=== PATIENT | female | born 1960 | race Caucasian/White ===

== ENCOUNTER 2021-04-17 15:39 | Outpatient (CLI) | payer MEDICARE, SELFPAY ==
--- NOTE | 2021-04-17 15:50 | MR_ITS ---
WS: [id number] MRI CERVICAL SPINE NONCONTRAST HISTORY: ANESTHESIA OF SKIN COMPARISON: None available. Technique: Multiplanar, multisequence noncontrast imaging of the cervical spine. Straightening of the normal cervical lordosis. Signal within the cord is normal. Disc desiccation and narrowing at all levels. No marrow edema or fr acture. Craniocervical junction, C1 and C2 relationship, odontoid process and soft tissues are normal. C2-C3: Normal. C3-C4: Diffuse disc bulging with a central disc protrusion contacting the ventral thecal sac. Ligamen della flavum hypertrophy and facet arthritis. Moderate central and mild bilateral foraminal stenosis. C4-C5: Diffuse annular disc bulging. There is a central moderate-sized disc protrusion which extends greatest to the LEFT of midline. Severe central and bilateral foraminal stenosis. C5-C6: Diffuse annular disc bulging and osteophytic ridging. Disc osteophyte complex greatest in the proximal RIGHT foramen. Severe central and bilateral foraminal stenosis. C6-C7: Diffuse annular disc bulging with a large central disc protrusion and foraminal osteophytes. S evere central and moderate bilateral foraminal stenosis. C7-T1: Small central disc protrusion without significant stenosis. Paraspinal soft tissue are normal. MR/MR cervical spin wo con* [id number] IMPRESSION: 1. Severe central and bilateral foraminal stenosis at C4-5 and C5-6 due to com bination of disc protrusions and small central canal. 2. Severe central and moderate bilateral foraminal stenosis at C6-7 due to lar ge central disc protrusion and osteophytes and small central canal. 3. Moderate central canal stenosis at C3-4. 4. No myelomalacia within the cervical cord at this time.
== END 2021-04-17 15:40 | disposition home or self-care (01) ==
LOC: RADWPI 15:44
PROVIDERS: PCP Registered Nurse; Visit Provider Registered Nurse
DX: R20.0 Anesthesia of skin (principal); M79.2 Neuralgia and neuritis, unspecified; M48.02 Spinal stenosis, cervical region; M50.223 Other cervical disc displacement at C6-C7 level; M25.78 Osteophyte, vertebrae
CPT/HCPCS: 72141